=== PATIENT | female | born 1990 | race African-American/Black ===

== ENCOUNTER 2018-09-26 13:01 | Emergency (ER) | payer OTHER ==
[2018-09-26] MEDS ORDERED: DEXAMETHASONE 10 MG/ML VIAL IM STA (13:43)
[2018-09-26] MEDS ORDERED: KETOROLAC 60 MG/2 ML VIAL IM STA (13:43)
[2018-09-26] MEDS ORDERED: CYCLOBENZAPRINE 10 MG TABLET PO STA (13:44)
--- NOTE | 2018-09-26 13:47 | ED Physician Documentation ---
PD HPI BACK PAIN - Stated complaint Stated Complaint: BACK/LEG PX - Chief complaint Chief Complaint: Back Pain - History obtained from History obtained from: Patient - History of Present Illness Timing - onset: How many days ago (3) Timing - duration: Days (3) Timing - details: Gradual onset Pain level max: 8 Pain level now: 8 Location: Lower, Right, Left Quality: Pain, Spasm, Similar to prior episodes Associated symptoms: No: Fever, Weakness, Numbness, Incontinent of urine, Unable to urinate, Hematuria, Incontinent of stool Improves with: Rest Worsened by: Movement Contributing factors: No: Lifting, Twisting, Trauma, Anticoagulated, Cancer, IVDA, Out of meds Similar symptoms before: Diagnosis (states bulging disc L5-S1) Recently seen: Not recently seen Review of Systems Constitutional: denies: Fever, Chills Respiratory: denies: Cough GI: denies: Vomiting : denies: Incontinent, Now EGA Skin: denies: Rash Musculoskeletal: denies: Neck pain Neurologic: denies: Focal weakness, Numbness, Headache PD PAST MEDICAL HISTORY - Past Medical History Past Medical History: Yes Musculoskeletal: Chronic back pain - Past Surgical History Past Surgical History: No - Present Medications Home Medications: Ambulatory Orders Medication Instructions Recorded Confirmed Cyclobenzaprine [Flexeril] 10 mg PO TID PRN #20 tablet 09/26/18 Gabapentin 900 mg PO DAILY 09/26/18 09/26/18 Meloxicam [Mobic] 15 mg PO DAILY PRN #20 tablet 09/26/18 Paroxetine HCl [Paxil] 20 mg PO DAILY 09/26/18 09/26/18 predniSONE [Deltasone] 10 mg PO [id number] #42 tab 09/26/18 - Allergies Allergies/Adverse Reactions: Allergies Allergy/AdvReac Type Severity Reaction Status Date / Time hydrocodone AdvReac Emesis Verified 09/26/18 13:13 - Living Situation Living Arrangement: reports: At home PD ED PE NORMAL - Vitals Vital signs reviewed: Yes - General General: Alert and oriented X 3, No acute distress, Well developed/nourished - HEENT HEENT: Moist mucous membranes - Neck Neck: Supple, no meningeal sign - Cardiac Cardiac: RRR, Strong equal pulses - Respiratory Respiratory: No respiratory distress, Clear bilaterally - Abdomen Abdomen: Soft, Non tender, Non distended - Back Back: No spinal TTP - Derm Derm: Warm and dry - Extremities Extremities: Other (Normal bilateral lower extremity patellar and ankle jerk reflexes. Normal great toe extension bilaterally. no saddle anesthesia) - Neuro Neuro: Alert and oriented X 3, No motor deficit, No sensory deficit - Psych Psych: Normal mood, Normal affect Results - Vitals Vitals: Vital Signs - 24 hr 09/26/18 13:09 Temperature 37 C Heart Rate 86 Respiratory 16 Rate Blood Pressure 118/71 O2 Saturation 98 Oxygen O2 Source Room air PD MEDICAL DECISION MAKING - ED course Complexity details: considered differential (No cauda equina, no spinal epidural abscess, no fracture, no aortic dissection or evidence of aneursym rupture), d/w patient ED course: 28-year-old female presents to the emergency department with chronic low back pain, recently exacerbated. Appears to have left-sided sciatica as well. No evidence of cauda equina, epidural abscess. Will place on pain medication and follow-up with her doctor. Patient counseled regarding signs and symptoms for which I believe and urgent re-evaluation would be necessary. Patient with good understanding of and agreement to plan and is comfortable going home at this time This document was made in part using voice recognition software. While efforts are made to proofread this document, sound alike and grammatical errors may occur. Departure - Departure Disposition: 01 Home, Self Care Clinical Impression: Chronic back pain Qualifiers: Back pain location: low back pain Back pain laterality: bilateral Sciatica presence: with sciatica Sciatica laterality: sciatica of left side Qualified Code(s): M54.42 - Lumbago with sciatica, left side Condition: Good Instructions: ED Sciatica Follow-Up: FABY WASHBURN DO [Primary Care Provider] - Within 1 week Prescriptions: Cyclobenzaprine [Flexeril] 10 mg PO TID PRN #20 tablet PRN Reason: Spasms Meloxicam [Mobic] 15 mg PO DAILY PRN #20 tablet PRN Reason: pain predniSONE [Deltasone] 10 mg PO [id number] #42 tab Comments: Use the medications as prescribed. Return if you worsen. Follow-up with your doctor for further care.
[2018-09-26 14:10] VITALS: BP 127/80
== END 2018-09-26 14:11 | disposition home or self-care (01) ==
LOC: ED 13:01
DX: M54.42 Lumbago with sciatica, left side (principal); G89.29 Other chronic pain
CPT/HCPCS: 99283; 99284; A9270

== ENCOUNTER 2019-02-06 08:43 | Emergency (ER) | payer OTHER ==
[2019-02-06 08:54] VITALS: BP 112/87
--- NOTE | 2019-02-06 09:54 | ED Physician Documentation ---
PD HPI URI - Stated complaint Stated Complaint: FLU LIKE SX - Chief complaint Chief Complaint: Heent - History obtained from History obtained from: Patient - History of Present Illness Timing - onset: How many days ago (5-6) Timing duration: Days Timing details: Abrupt onset, Still present Associated symptoms: Fever, Nasal congestion, Sore throat, Dry cough, Dyspnea, NVD Contributing factors: No: Sick contact, Immunocompromised, COPD / asthma Similar symptoms before: Has not had sx before Recently seen: Not recently seen ([place] providers available, so referred to ER.) Review of Systems Constitutional: reports: Fever (first few days, less now) Nose: reports: Rhinorrhea / runny nose, Congestion Throat: reports: Sore throat Cardiac: reports: Chest pain / pressure (with coughing) Respiratory: reports: Cough GI: reports: Nausea, Vomiting, Diarrhea. denies: Abdominal Pain : denies: Dysuria, Frequency Skin: denies: Rash Musculoskeletal: denies: Neck pain, Back pain Neurologic: reports: Generalized weakness, Headache. denies: Near syncope, Altered mental status PD PAST MEDICAL HISTORY - Past Medical History Cardiovascular: None Respiratory: None Neuro: None Endocrine/Autoimmune: None Musculoskeletal: Chronic back pain - Past Surgical History Past Surgical History: No - Present Medications Home Medications: Ambulatory Orders Medication Instructions Recorded Confirmed Cyclobenzaprine [Flexeril] 10 mg PO TID PRN #20 tablet 09/26/18 Gabapentin 900 mg PO DAILY 09/26/18 09/26/18 Meloxicam [Mobic] 15 mg PO DAILY PRN #20 tablet 09/26/18 PARoxetine HCl [Paxil] 20 mg PO DAILY 09/26/18 09/26/18 predniSONE [Deltasone] 10 mg PO [id number] #42 tab 09/26/18 Benzonatate [Tessalon Perle] 100 mg PO TID PRN #30 capsule 02/06/19 Naproxen 500 mg PO BID #20 tablet 02/06/19 Ondansetron Odt [Zofran] 4 mg TL Q6H PRN #15 tablet 02/06/19 dexAMETHasone [Decadron] 4 mg PO DAILY #5 tablet 02/06/19 - Allergies Allergies/Adverse Reactions: Allergies Allergy/AdvReac Type Severity Reaction Status Date / Time hydrocodone AdvReac Emesis Verified 02/06/19 08:54 - Social History Does the pt smoke?: No Smoking Status: Never smoker PD ED PE NORMAL - Vitals Vital signs reviewed: Yes - General General: Alert and oriented X 3, No acute distress, Well developed/nourished - HEENT HEENT: Moist mucous membranes, Pharynx benign - Neck Neck: Supple, no meningeal sign, No adenopathy - Cardiac Cardiac: RRR, No murmur - Respiratory Respiratory: Clear bilaterally Results - Vitals Vitals: Vital Signs - 24 hr 02/06/19 08:52 Temperature 36.4 C L Heart Rate 66 Respiratory 15 Rate Blood Pressure 112/87 H O2 Saturation 100 Oxygen O2 Source Room air - Labs Labs: Laboratory Tests 02/06/19 08:35 Influenza A (Rapid) Negative Influenza B (Rapid) Negative PD MEDICAL DECISION MAKING - ED course Complexity details: considered differential (seems flu like and still with symptoms. No signs of secondary infection. ), d/w patient Departure - Departure Disposition: 01 Home, Self Care Clinical Impression: Flu-like symptoms Condition: Stable Record reviewed to determine appropriate education?: Yes Instructions: ED Upper Resp Infec No Abx Tx Follow-Up: FABY WASHBURN DO [Primary Care Provider] - Prescriptions: Benzonatate [Tessalon Perle] 100 mg PO TID PRN #30 capsule PRN Reason: Cough dexAMETHasone [Decadron] 4 mg PO DAILY #5 tablet Naproxen 500 mg PO BID #20 tablet Ondansetron Odt [Zofran] 4 mg TL Q6H PRN #15 tablet PRN Reason: Nausea / Vomiting Comments: Stay well-hydrated. Ondansetron if needed for nausea and so you can improve hydration. Decadron daily for 5 more days to decrease inflammation overall and this will help with headache as well as cough. Benzonatate as needed for cough suppression. Add naproxen twice daily for fevers aches and pains. Add Tylenol if needed. Off work today and tomorrow. Hopefully will be improving over the next few days. Forms: Activity restrictions Discharge Date/Time: 02/06/19 10:22
[2019-02-06] MEDS ORDERED: ONDANSETRON ODT 4 MG TABLET TL STA (10:07)
[2019-02-06] MEDS ORDERED: DEXAMETHASONE 10 MG/ML VIAL PO STA (10:07)
[2019-02-06] MEDS ORDERED: CHERRY SYRUP 10 ML UDC PO ONE (10:07)
[2019-02-06] MEDS ORDERED: BENZONATATE 100 MG CAPSULE PO STA (10:07)
== END 2019-02-06 10:22 | disposition home or self-care (01) ==
LOC: ED 08:43
DX: R50.9 Fever, unspecified (principal); R05 Cough; J02.9 Acute pharyngitis, unspecified; R11.2 Nausea with vomiting, unspecified; R19.7 Diarrhea, unspecified; R53.1 Weakness
CPT/HCPCS: 87275; 87276; 99283; A9270; Q0162

== ENCOUNTER 2019-09-01 10:56 | Emergency (ER) | payer OTHER ==
[2019-09-01 14:21] VITALS: BP 118/82
--- NOTE | 2019-09-01 14:41 | ED Physician Documentation ---
PD HPI HEAD INJURY - Stated complaint Stated Complaint: HEADACHE/DIZZINESS - Chief complaint Chief Complaint: Trauma Hd/Nk - History obtained from History obtained from: Patient - History of Present Illness Mechanism of head injury: Blow Where head injury occurred: Street Timing - onset: How many days ago (2) Location of injury: Front Quality of pain: Pain Associated symptoms: Nausea / vomiting. No: LOC, AMS, Amnesia, Paresthesias, Seizures, Ear drainage, Nasal drainage Symptoms improve with: Rest, Meds Symptoms worsen with: Palpation, Movement Contributing factors: No: Anticoagulated Similar symptoms before: Has not had sx before Recently seen: Not recently seen - Additional information Additional information: 29-year-old female was outside walking when she turned briskly and struck her head against the metal edge of a canoe that was standing up. She did not have loss of consciousness she did have an immediate headache and she lost her vision temporarily. The vision returned quickly and she developed some nausea headache difficulty concentrating and some dizziness. The symptoms are worse today than yesterday. She is come to the emergency department at the insistence of her friends who notes that she has been sleeping most of the time. Review of Systems Constitutional: denies: Fever Eyes: denies: Decreased vision Ears: denies: Ear pain Nose: denies: Rhinorrhea / runny nose, Congestion Cardiac: denies: Chest pain / pressure, Palpitations Respiratory: denies: Dyspnea, Cough GI: reports: Nausea. denies: Abdominal Pain, Vomiting : denies: Dysuria, Frequency Skin: denies: Rash, Lesions, Abrasion (s) Musculoskeletal: denies: Neck pain, Back pain, Extremity pain Neurologic: reports: Headache, Head injury. denies: Generalized weakness, Focal weakness, Numbness, Difficulty speaking, Syncope, Seizure, Confused, Altered mental status, LOC PD PAST MEDICAL HISTORY - Past Medical History Cardiovascular: None Respiratory: None Neuro: None Endocrine/Autoimmune: None Musculoskeletal: Chronic back pain - Past Surgical History Past Surgical History: No - Present Medications Home Medications: Ambulatory Orders Medication Instructions Recorded Confirmed Cyclobenzaprine [Flexeril] 10 mg PO TID PRN #20 tablet 09/26/18 Gabapentin 900 mg PO DAILY 09/26/18 09/26/18 Meloxicam [Mobic] 15 mg PO DAILY PRN #20 tablet 09/26/18 PARoxetine HCl [Paxil] 20 mg PO DAILY 09/26/18 09/26/18 predniSONE [Deltasone] 10 mg PO [id number] #42 tab 09/26/18 Benzonatate [Tessalon Perle] 100 mg PO TID PRN #30 capsule 02/06/19 Naproxen 500 mg PO BID #20 tablet 02/06/19 Ondansetron Odt [Zofran] 4 mg TL Q6H PRN #15 tablet 02/06/19 dexAMETHasone [Decadron] 4 mg PO DAILY #5 tablet 02/06/19 - Allergies Allergies/Adverse Reactions: Allergies Allergy/AdvReac Type Severity Reaction Status Date / Time hydrocodone AdvReac Emesis Verified 02/06/19 08:54 - Social History Does the pt smoke?: No Smoking Status: Never smoker Does the pt drink ETOH?: Yes Does the pt have substance abuse?: No - Immunizations Immunizations are current?: Yes PD ED PE NORMAL - Vitals Vital signs reviewed: Yes (hypertensive mild ) - General General: Alert and oriented X 3, No acute distress, Well developed/nourished, Other (29-year-old female no distress wearing dark glasses in a darkened room) - HEENT HEENT: PERRL, EOMI, Ears normal, Moist mucous membranes, Pharynx benign, Dentition benign, Other (There is point tenderness to the forehead over the right eyebrow extending into the hairline) - Neck Neck: Supple, no meningeal sign, No bony TTP - Cardiac Cardiac: RRR, No murmur - Respiratory Respiratory: No respiratory distress, Clear bilaterally - Abdomen Abdomen: Soft, Non tender - Back Back: No CVA TTP, No spinal TTP - Derm Derm: Normal color, Warm and dry, No rash - Extremities Extremities: No deformity, No edema, No calf tenderness / cord - Neuro Neuro: Alert and oriented X 3, extrusion former 2-12 intact, No motor deficit, No sensory deficit, Normal speech Eye Opening: Spontaneous Motor: Obeys Commands Verbal: Oriented GCS Score: 15 - Psych Psych: Normal mood, Normal affect Results - Vitals Vitals: Vital Signs - 24 hr 09/01/19 09/01/19 11:07 14:10 Temperature 36.7 C Heart Rate 75 80 Respiratory 16 16 Rate Blood Pressure 132/73 H 118/82 H O2 Saturation 99 100 Oxygen O2 Source Room air - Rads (name of study) CT Radiology: Prelim report reviewed (Impression: No acute intracranial abnormality. If clinical symptoms persist, MRI may be indicated.), EMP read indepedently, See rad report PD MEDICAL DECISION MAKING - ED course Complexity details: reviewed results, re-evaluated patient, considered differential, d/w patient ED course: 29-year-old female with headache nausea dizziness and difficulty concentration has had a concussion. CT is without evidence of intracranial hemorrhage. Departure - Departure Disposition: 01 Home, Self Care Clinical Impression: Concussion Qualifiers: Encounter type: initial encounter Loss of consciousness presence/duration: without LOC Qualified Code(s): S06.0X0A - Concussion without loss of consciousness, initial encounter Condition: Stable Instructions: ED Concussion Follow-Up: ANTON Paul [Provider Group] Forms: Activity restrictions
--- NOTE | 2019-09-01 15:16 | CT Report ---
PROCEDURE: HEAD WO INDICATIONS: concussion persistent symptoms TECHNIQUE: Noncontrast 4.5 mm thick angled axial sections acquired from the foramen magnum to the vertex. For r adiation dose reduction, the following was used: automated exposure control, adjustment of mA and/or kV according to patient size. COMPARISON: None. FINDINGS: Image quality: Excellent. CSF spaces: Basal cisterns are patent. No extra-axial fluid collections. Ventricles are normal in size and shape. Brain: No midline shift. No intracranial masses or hemorrhage. Hobbs-white matter interface is norm al. Skull and face: Calvarium and visualized facial bones are intact, without suspicious lesions. Sinuses: Visualized sinuses and mastoids are clear. IMPRESSION: No acute intracranial abnormality. If clinical symptoms persist, MRI may be indicated. Reviewed by: Arsh Shipley MD on 09/01/2019 3:14 PM PDT Approved by: Arsh Shipley MD on 09/01/2019 3:14 PM PDT Station ID: [id number]
== END 2019-09-01 16:26 | disposition home or self-care (01) ==
LOC: ED 10:56
DX: S06.0X0A Concussion without loss of consciousness, initial encounter (principal); W22.8XXA Striking against or struck by other objects, initial encounter; Y93.01 Activity, walking, marching and hiking; Y92.10 Unspecified residential institution as the place of occurrence of the external cause
CPT/HCPCS: 70450; 99284

== ENCOUNTER 2021-01-09 08:00 | Outpatient (CLI) | payer OTHER | END 2021-01-09 23:59 | disposition home or self-care (01) | LOC: LAB 08:00 | PROVIDERS: ATTEND Nurse Practitioner | DX: J02.9 Acute pharyngitis, unspecified (principal); R05.3 Chronic cough; Z20.822 Contact with and (suspected) exposure to COVID-19 | CPT/HCPCS: 87070; 87086 ==

== ENCOUNTER 2021-03-02 08:00 | Outpatient (CLI) | payer OTHER ==
--- NOTE | 2021-03-03 08:52 | XRAY Report ---
PROCEDURE: Lumbar Spine Complete INDICATIONS: LOW BACK PX TECHNIQUE: 5 views of the lumbar spine were acquired. COMPARISON: None. FINDINGS: Bones: 5 [id number] vertebrae are present. There is normal bony alignment. Very mild degenerat mariaelena endplate changes are seen at L4-5 and L5-S1 levels. No vertebral body compression fractures. No suspicious bony lesions. Oblique views shows no pars defects. No significant bony foraminal stenosis. Soft tissues: Overlying bowel gas pattern is normal. No suspicious soft tissue calcifications. IMPRESSION: Very mild degenerative endplate changes in lower lumbar spine. No compression fracture o r spondylolisthesis. No pars defects. Reviewed by: Richard Sol MD on 03/03/2021 8:50 AM PST Approved by: Richard Sol MD on 03/03/2021 8:50 AM [facility] Station ID: [id number]
== END 2021-03-02 23:59 ==
LOC: DI.N 08:00
PROVIDERS: ATTEND Nurse Practitioner
DX: M47.816 Spondylosis without myelopathy or radiculopathy, lumbar region (principal); M47.817 Spondylosis without myelopathy or radiculopathy, lumbosacral region

== ENCOUNTER 2021-11-02 13:58 | Emergency (ER) | payer OTHER ==
--- OUTSIDE RECORDS SUMMARY | 2021-11-02 14:19 | EXTERNAL MEDICAL SUMMARY RPT | Continuity of Care Document ---
:1990 Author Organization [facility] Address [address] [id number] Phone Allergies No information. Encounters No information. Functional Status No information. Immunizations No information. Medications No information. Problems No information. Procedures date description facility [id number] Visit Code Hold All [id number] COMPREHENSIVE METABOLIC PANEL All [id number] CBC W/Diff/Plt All Results/Labs No information. Social History No information. Vital Signs date measurement value units [id number] BMI BMI 33.10 kg/m2 [id number]+0000 BP_diastolic BP_diastolic 82 mm[H g] [id number]+0000 BP_systolic BP_systolic 116 mm[Hg] 10860214185368+0000 heart_rate heart_rate 77 /min [id number]+0000 height_metric height_metric 160.02 cm [id number]+0000 height_standard height_standard 63 in [id number]+0000 respiration_rate respiration_rate 18 /min [id number]+0000 temperature_metric temperature_metric 36.61 C [id number]+0000 temperature_standard temperature_standard 9 7.9 F [id number]+0000 weight_metric weight_metric 84.46 kg [id number]+0000 weight_standard weight_standard 186.2 lb
--- NOTE | 2021-11-02 14:37 | ED Physician Documentation ---
PD HPI CHEST PAIN - Stated complaint Stated Complaint: CHEST PX - Chief complaint Chief Complaint: Resp - History obtained from History obtained from: Patient - Additional information Additional information: Previously healthy 31-year-old woman has been sick for 4 days with cough, runny nose, congestion, sore throat and lost her voice. She denies fevers. She developed some chest pain radiating to the back today associated with coughing. Review of Systems Constitutional: denies: Fever, Chills Ears: denies: Ear pain Nose: reports: Rhinorrhea / runny nose Throat: reports: Sore throat Respiratory: reports: Cough. denies: Dyspnea PD PAST MEDICAL HISTORY - Past Medical History Cardiovascular: None Respiratory: None Neuro: None Endocrine/Autoimmune: None Musculoskeletal: Chronic back pain - Past Surgical History Past Surgical History: No - Present Medications Home Medications: Ambulatory Orders Medication Instructions Recorded Confirmed Cyclobenzaprine [Flexeril] 10 mg PO TID PRN #20 tablet 09/26/18 11/02/21 PARoxetine HCl [Paxil] 20 mg PO DAILY 09/26/18 11/02/21 Ibuprofen [Motrin] 600 mg PO TID PRN #20 tab 09/27/21 11/02/21 Benzonatate [Tessalon] 200 mg PO QID PRN #20 cap 11/02/21 Doxycycline Hyclate 20 mg PO DAILY 11/02/21 11/02/21 Ibuprofen [Motrin] 800 mg PO Q8H PRN #30 tablet 11/02/21 - Allergies Allergies/Adverse Reactions: Allergies Allergy/AdvReac Type Severity Reaction Status Date / Time hydrocodone AdvReac Emesis Verified 11/02/21 14:05 - Social History Does the pt smoke?: No Smoking Status: Never smoker Does the pt drink ETOH?: Yes Does the pt have substance abuse?: No - Immunizations Immunizations are current?: Yes PD ED PE NORMAL - Vitals Vital signs reviewed: Yes - General General: Alert and oriented X 3, No acute distress - HEENT HEENT: PERRL, EOMI, Other (Laryngitic voice with red tonsillar pillars but no exudates, supple neck, no adenopathy.) - Cardiac Cardiac: RRR, No murmur - Respiratory Respiratory: No respiratory distress, Clear bilaterally - Abdomen Abdomen: Non tender - Derm Derm: No rash - Neuro Neuro: Alert and oriented X 3, Normal speech Results - Vitals Vitals: Vital Signs - 24 hr 11/02/21 11/02/21 14:05 15:14 Temperature 36.5 C Heart Rate 85 76 Respiratory 16 16 Rate Blood Pressure 136/84 H 125/76 O2 Saturation 100 98 Oxygen O2 Source Room air - EKG (time done) 1405 Rate: Rate (enter#) (83) Rhythm: NSR Ryder: Normal Intervals: Normal WI QRS: Normal Ischemia: Normal ST segments - Labs Labs: Laboratory Tests 11/02/21 15:11 Nasal Adenovirus (PCR) NOT DETECTED Nasal B. parapertussis DNA (PCR) NOT DETECTED Nasal Coronavir 229E PCR NOT DETECTED Nasal Coronavir HKU1 PCR NOT DETECTED Nasal Coronavir NL63 PCR NOT DETECTED Nasal Coronavir OC43 PCR NOT DETECTED Nasal Enterovir/Rhinovir PCR NOT DETECTED Nasal Influenza B PCR NOT DETECTED Nasal Influenza A PCR NOT DETECTED Nasal Parainfluen 1 PCR NOT DETECTED Nasal Parainfluen 2 PCR NOT DETECTED Nasal Parainfluen 3 PCR NOT DETECTED Nasal Parainfluen 4 PCR NOT DETECTED Nasal RSV (PCR) NOT DETECTED Nasal B.pertussis DNA PCR NOT DETECTED Nasal C.pneumoniae (PCR) NOT DETECTED [facility] Human Metapneumo PCR NOT DETECTED Nasal M.pneumoniae (PCR) NOT DETECTED Nasal SARS-CoV-2 (PCR) NOT DETECTED - Rads (name of study) 2 view chest x-ray is unremarkable Radiology: EMP read contemporaneously PD MEDICAL DECISION MAKING - ED course ED course: 31-year-old woman with viral URI and laryngitis. She has some reactive chest pain but EKG and chest x-ray are negative. Symptomatic treatment given. Departure - Departure Disposition: 01 Home, Self Care Clinical Impression: Viral URI Condition: Good Record reviewed to determine appropriate education?: Yes Instructions: ED Viral Syndrome Prescriptions: Ibuprofen [Motrin] 800 mg PO Q8H PRN #30 tablet PRN Reason: PAIN &/OR FEVER Benzonatate [Tessalon] 200 mg PO QID PRN #20 cap PRN Reason: Cough Comments: You have a Covid test pending. You need to self quarantine until the result is done and negative. Do not leave your house. Do not get near anybody. The results should be done in 48 to 72 hours. We will call with a positive result, the fastest way to get a negative result for confirmation though is to go to the hospital website at [email or web address], click on the my [facility] tab and sign up for the patient portal. Forms: Activity restrictions Discharge Date/Time: 11/02/21 15:16
[2021-11-02] MEDS ORDERED: BENZONATATE 100 MG CAPSULE PO STA (14:38)
--- NOTE | 2021-11-02 15:00 | XRAY Report ---
PROCEDURE: Chest 2 View X-Ray INDICATIONS: cough, cp TECHNIQUE: 2 view(s) of the chest. COMPARISON: None. FINDINGS: Surgical changes and devices: None. Lungs and pleura: No pleural effusions or pneumothorax. Lungs are clear. Mediastinum: Mediastinal contours are normal. Heart size is normal. Bones and chest wall: No suspicious bony abnormalities. Soft tissues appear unremarkable. IMPRESSION: Chest without acute cardiopulmonary abnormalities or focal airspace disease. Reviewed by: Quentin Hood MD on 11/02/2021 2:59 PM PDT Approved by: Quentin Hood MD on 11/02/2021 2:59 PM PDT Station ID: [id number]
[2021-11-02 15:16] VITALS: BP 125/76
[2021-11-02 16:30] LABS: CORONAVIRUS 229E-RESP PCR NOT DETECTED; CORONAVIRUS HKU1-RESP PCR NOT DETECTED; CORONAVIRUS NL63-RESP PCR NOT DETECTED; CORONAVIRUS OC43-RESP PCR NOT DETECTED; HUMAN METAPNEUMOVIRUS NOT DETECTED; RHINOVIRUS/ENTEROVIRUS NOT DETECTED; SARS-CoV-2 -RESP PCR PANEL NOT DETECTED
[2021-11-02 16:31] LABS: B. PARAPERTUSSIS- RESP PCR PAN NOT DETECTED; B. PERTUSSIS- RESP PCR PANEL NOT DETECTED; C. PNEUMONIAE- RESP PCR PANEL NOT DETECTED; INFLUENZA A- RESP PCR PANEL NOT DETECTED; INFLUENZA B - RESP PCR PANEL NOT DETECTED; M. PNEUMONIAE- RESP PCR PANEL NOT DETECTED; PARAINFLUENZA VIRUS 1 NOT DETECTED; PARAINFLUENZA VIRUS 2 NOT DETECTED; PARAINFLUENZA VIRUS 3 NOT DETECTED; PARAINFLUENZA VIRUS 4 NOT DETECTED; RSV- RESP PCR PANEL NOT DETECTED
== END 2021-11-02 15:16 | disposition home or self-care (01) ==
LOC: ED 13:58
DX: J06.9 Acute upper respiratory infection, unspecified (principal); Z20.822 Contact with and (suspected) exposure to COVID-19
CPT/HCPCS: 71046; 87633; 93005; 99283; 99284; A9270